=== PATIENT | male | born 1985 ===

== ENCOUNTER 2016-11-30 17:38 | Emergency (ER) | payer BC ==
--- NOTE | 2016-11-30 18:52 | ED CLINICAL REPORT ---
Clinical Report - Physicians/Mid Levels [facility] [address] [place] [address] 11/30/2016 17:42 Patient: EMERSON SNYDER Arrived- By private vehicle. Historian- patient. HISTORY OF PRESENT ILLNESS Chief Complaint: SKIN RASH. This started Past several weeks and is still present and worsening. It was abrupt in onset and has been constant but is not gone now. It is described as itchy, painful and burning. It has been located on the right upper extremity and left upper extremity. No cause has been identified. (patient ports she's been seen at a clinic. Patient states that he was given steroid cream which has not helped. Patient reports no known sick contacts. The patient is unsure if it worsens or improves with warm showers. Patient ports that he also does not know if the itching is worse at night.). Similar symptoms previously: None. Recent medical care: The patient was seen recently in a clinic. REVIEW OF SYSTEMS No fever, difficulty breathing, abdominal pain, nausea or vomiting. All systems otherwise negative, except as recorded above. PAST HISTORY See nurses notes. Tetanus immunization status is up-to-date. SOCIAL HISTORY Never smoker. No alcohol use or drug use. No recent travel. Is a local resident. FAMILY HISTORY Negative. ADDITIONAL NOTES The nursing notes have been reviewed. PHYSICAL EXAM Vital Signs: 11/30/2016 17:54 BP: 114/71. HR: 73. RR: 20. O2 saturation: 99%. Temp: 98.8 F. Blood pressure normal. Oxygen saturation normal. Appearance: Alert. Oriented X3. No acute distress. Eyes: Pupils equal, round and reactive to light. Conjunctivae and eyelids normal. ENT: Ears normal. Nose normal. Pharynx normal. Neck: Neck supple. CVS: Normal heart rate and rhythm. Heart sounds normal. Respiratory: No respiratory distress. Breath sounds normal. Chest nontender. Abdomen: Nontender. No organomegaly. Skin: (Diffuse papular type rash involving the hands bilaterallyfrom the wrist down. Does not involve the palms or the soles. no erythema. No streaking Apparent. Nontender. Compartments are soft. Neurovascularly intact distally. No crepitus. No hyperemia.). PROGRESS AND PROCEDURES Course of Care: The patient is a pleasant 31-year-old male presenting for a violation of rash to the hands. There appeared to be scabies like rash on examination. Patient is also been given triamcinolone cream. If this was due toto a contact type dermatitis or allergic reaction, would expect the cream to have significantly helped. Patient ports that it is worsening. The patient's rash is also consistent with scabies. Patient be treated asscabies at this time. Patient will be instructed to follow-up with his primary care doctor in regards to the symptoms. No other concerning involvement of therash. He does not have any involvement of the eyes, mucous membranes, or palms/soles. Patient ports no fever. No other systemic sinus symptoms. Patient will be provided medications also for symptom control. No signs of infection. Patient is nontoxic and in no acute distress. Vital signs are unremarkable. Do not feel patient needs to be admitted to the hospital require further emergency department workup/evaluation. Disposition: Discharged. Condition: good. CLINICAL IMPRESSION 11/30/2016 17:54 BP: 114/71. HR: 73. RR: 20. O2 saturation: 99%. Temp: 98.8 F. Blood pressure normal. Oxygen saturation normal. Scabies (acute). INSTRUCTIONS Warnings: GENERAL WARNINGS: Return or contact your physician immediately if your condition worsens or changes unexpectedly, if not improving as expected, or if other problems arise. Specifically return if pain, vomiting, bleeding, breathing difficulty or fever. Your Current Medications: CONTINUE TAKING THE FOLLOWING MEDICATIONS: None*. Prescription Medications: Permethrin 5% Cream: Shower and dry thoroughly, then apply cream to whole body from neck down, leave on 8 hours then shower thoroughly and launder clothes and bedclothes in hot water. Repeat in 1 week. Dispense two (2) tubes. One refill. Hydroxyzine 50 mg: take 1 orally every 8 hours as needed for itching. Dispense thirty (30). No refill. Follow-up: Return to the emergency department as needed. Follow up with your doctor in three days. Reason for referral: recheck today's concerns. Summary of care provided to patient via paper. Screening today revealed the patient's blood pressure to be in the normal range. The patient should follow up with a primary care provider for blood pressure management. Understanding of the discharge instructions verbalized by patient. (Electronically signed by Richard Chaudhry Dr. 12/06/2016 9:32)
--- NOTE | 2016-11-30 18:52 | ED NURSING NOTES ---
Clinical Report - Nurses [facility] [place] [address] 11/30/2016 17:42 Patient: EMERSON SNYDER TRIAGE Triage time 17:55. Acuity: LEVEL 3. Chief Complaint: SKIN RASH. Alert. No acute distress. --17:57 Efraín Rene R.N. 17:54 11/30/16. BP: 114/71. HR: 73. RR: 20. O2 saturation: 99%. Temp: 98.8 F. Pain level now 04/27. --17:57 Efraín Rene R.N. Weight: 84.8 kg stated. Height/Length: 69 inches Per Patient. BMI: 27.6. --17:57 Efrían Rene R.N. Medications None. --17:56 Efraín Rene R.N. Allergies None. --17:56 Efraín Rene R.N. History Arrived by private vehicle. Historian: patient. Onset. (1 weeks ago). It is described as itchy, burning and painful. ( Seen at clinic one week ago and started on triamcinolone. Thinks that the bumps / rash are worse.). --17:57 Efraín Rene R.N. Interventions ID band on patient. --17:57 Efraín Rene R.N. PHYSICAL ASSESSMENT GENERAL / NEURO / PSYCH: Alert. The patient does not appear to be in acute distress. Oriented X 4. RESPIRATORY: Respirations not labored. --17:57 Efraín Rene R.N. ( has bumps on both hands. Appear fluid filled. The bumps do not go up his arms past his wrist and are not spreading to any other part of his body. Does not know of any exposure that would be causing this.). --18:01 Efraín Rene R.N. NURSING PROGRESS NOTES Call light placed in reach. Bed placed in lowest position. --17:58 Efraín Rene R.N. DISPOSITION / DISCHARGE Condition at departure: unchanged. No learning barriers present. Discharge instructions provided and reviewed with the patient. Patient verbalized understanding. Written instructions provided in Maldivian. --19:01 Efraín Rene R.N. 19:26 11/30/16. BP: 114/71. HR: 73. RR: 20. O2 saturation: 99%. Temp: 98.8 F. Pain level now 7/10. --19:27 Efraín Rene R.N. Locked/Released at 11/30/2016 19:27 by Efraín Rene R.N.
--- NOTE | 2016-11-30 18:52 | ED NURSING NOTES ---
Clinical Report - Nurses [facility] [place] [address] [place] [address] 11/30/2016 17:42 Patient: EMERSON SNYDER TRIAGE Triage time 17:55. Acuity: LEVEL 3. Chief Complaint: SKIN RASH. Alert. No acute distress. --17:57 Efraín Rene R.N. 17:54 11/30/16. BP: 114/71. HR: 73. RR: 20. O2 saturation: 99%. Temp: 98.8 F. Pain level now 04/27. --17:57 Efraín Rene R.N. Weight: 84.8 kg stated. Height/Length: 69 inches Per Patient. BMI: 27.6. --17:57 Efraín Rene R.N. Medications None. --17:56 Efraín Rene R.N. Allergies None. --17:56 Efraín Rene R.N. History Arrived by private vehicle. Historian: patient. Onset. (1 weeks ago). It is described as itchy, burning and painful. ( Seen at clinic one week ago and started on triamcinolone. Thinks that the bumps / rash are worse.). --17:57 Efraín Rene R.N. Interventions ID band on patient. --17:57 Efraín Rene R.N. PHYSICAL ASSESSMENT GENERAL / NEURO / PSYCH: Alert. The patient does not appear to be in acute distress. Oriented X 4. RESPIRATORY: Respirations not labored. --17:57 Efraín Rene R.N. ( has bumps on both hands. Appear fluid filled. The bumps do not go up his arms past his wrist and are not spreading to any other part of his body. Does not know of any exposure that would be causing this.). --18:01 Efraín Rene R.N. NURSING PROGRESS NOTES Call light placed in reach. Bed placed in lowest position. --17:58 Efraín Rene R.N. DISPOSITION / DISCHARGE Condition at departure: unchanged. No learning barriers present. Discharge instructions provided and reviewed with the patient. Patient verbalized understanding. Written instructions provided in Belarusian. --19:01 Efraín Rene R.N. 19:26 11/30/16. BP: 114/71. HR: 73. RR: 20. O2 saturation: 99%. Temp: 98.8 F. Pain level now 7/10. --19:27 Efraín Rene R.N. Locked/Released at 11/30/2016 19:27 by Efraín Rene R.N.
--- NOTE | 2016-12-06 09:33 | ED DISCHARGE INSTRUCTIONS ---
Patient: EMERSON SNYDER General Instructions [facility] VisitID: [id number] [address] [place] [address] 31y, M Registration Date/Time: 11/30/2016 11/30/2016 17:54 BP: 114/71. HR: 73. RR: 20. O2 saturation: 99%. Temp: 98.8 F. Blood pressure normal. Oxygen saturation normal. Scabies (acute). INSTRUCTIONS Warnings: GENERAL WARNINGS: Return or contact your physician immediately if your condition worsens or changes unexpectedly, if not improving as expected, or if other problems arise. Specifically return if pain, vomiting, bleeding, breathing difficulty or fever. Your Current Medications: CONTINUE TAKING THE FOLLOWING MEDICATIONS: None*. Prescription Medications: Permethrin 5% Cream: Shower and dry thoroughly, then apply cream to whole body from neck down, leave on 8 hours then shower thoroughly and launder clothes and bedclothes in hot water. Repeat in 1 week. Dispense two (2) tubes. One refill. Hydroxyzine 50 mg: take 1 orally every 8 hours as needed for itching. Dispense thirty (30). No refill. Follow-up: Return to the emergency department as needed. Follow up with your doctor in three days. Reason for referral: recheck today's concerns. Summary of care provided to patient via paper. Screening today revealed the patient's blood pressure to be in the normal range. The patient should follow up with a primary care provider for blood pressure management. Understanding of the discharge instructions verbalized by patient. ADDITIONAL INFORMATION Scabies Scabies is a skin disease caused by a tiny insect that can only be seen with a microscope. Scabies alicia under the skin and cause an itchy bumpy rash on the hands, feet, armpits, buttocks and groin area. Preventing Spread To Others: Scabies is highly contagious. It is easily spread by close personal contact or by sharing bed linens or clothing used by an infected person. It may take 4-6 weeks for symptoms to appear after being exposed. Everyone living in the house with an infected person, as well as sexual partners of an infected person, should be treated at the same time. After the first treatment, you will no longer be contagious and you may return to work, school or daycare. Home Care: Clothing Care Machine wash in hot water all sheets, towels, pillowcases, underwear, pajamas and any other clothing recently worn. Use the hot cycle of a dryer or use a hot iron to sterilize. Items that are difficult to wash such as coats, jackets, blankets and spreads can be sealed in a plastic trash bag for four days. (The insects after three days off the human body.) Using Medicine Use the medicine (Kwell or Elimite) exactly as prescribed. Apply it at bedtime from the chin down to your toes, covering all of your skin. Do this even in areas that don't seem infected! Avoid getting the medicine in your eyes and the sensitive areas around the vagina and tip of the penis. If it gets in a sensitive area, rinse with lots of water. Wash off the medicine 8-14 hours later. Do not leave it on the skin longer than directed and do not use it more often than directed. Otherwise, side effects may occur. A single treatment will kill the mites in the skin right away, but it may take 2-4 weeks for all of the itching and rash to go away. Itching may increase slightly right after the treatment, but you should be better by the end of the first week. Women should tell their doctor if they are nursing or think they may be before using this medicine. Itching Oral Benadryl (diphenhydramine) is an antihistamine available at drug and grocery stores. Unless a prescription antihistamine was given, Benadryl may be used to reduce itching if large areas of the skin are involved. Use lower doses during the daytime and higher doses at bedtime since the drug may make you sleepy. [NOTE: Do not use Benadryl if you have glaucoma or if you are a man with trouble urinating due to an enlarged prostate.] Claritin (loratidine) is an antihistamine that causes less drowsiness and is a good alternative for daytime use. For severe itch attacks, apply an ice pack (ice cubes in a plastic bag, wrapped in a towel) or use Lanacaine, Lanacort or Solarcaine (or other medicines containing benzocaine, sold without a prescription). Follow Up with your doctor or as directed if your symptoms do not improve after 1 week. Get Prompt Medical Attention if any of the following occur: Increasing redness of the skin Yellow-brown crusts or drainage from the sores Fever of 100.4F (38C) or higher, or as directed by your healthcare provider Permethrin Topical cream What is this medicine? PERMETHRIN (per METH rin) skin cream is used to treat scabies. How should I use this medicine? This medicine is for external use only. Do not take by mouth. Follow the directions on the prescription label. A bath or shower is NOT recommended before applying this medicine. Thoroughly rub the cream into all skin surfaces, from your head to the soles of your feet. It is important to apply it everywhere on your body, not just where the rash is. Apply the cream between fingers and toe creases, in the folds of the wrist and waistline, in the cleft of the buttocks, on the genitals, and in the belly button. Use a toothpick to apply the cream beneath your fingernails and toenails. Nails should be cut short. If you have little or no hair, or you are applying the cream to an infant or young child, make sure you rub the cream into the neck, scalp, hairline, temples, and forehead. Leave it on for 8 to 14 hours, then remove it by bathing and shampooing. If you are applying this medicine to another person, wear plastic or disposable gloves to protect yourself from infestation. Do not get this medicine in your eyes. If you do, rinse out with plenty of cool tap water. Talk to your cone machine feeder regarding the use of this medicine in children. While this drug may be prescribed for children as young as 2 months of age for selected conditions, precautions do apply. What side effects may I notice from receiving this medicine? Side effects that usually do not require medical attention (report to your doctor or health palliative care physician if they continue or are bothersome): itching numbness rash redness or mild swelling of the skin stinging or burning tingling sensation What may interact with this medicine? Interactions are not expected. Do not use any other skin products on the affected area without telling your doctor or health palliative care physician. What if I miss a dose? This does not apply. Where should I keep my medicine? Keep out of the reach of children. Store at room temperature away from heat and direct light. Do not refrigerate or freeze. Throw away any unused medicine after the expiration date. What should I tell my health care provider before I take this medicine? They need to know if you have any of these conditions: asthma an unusual or allergic reaction to permethrin, veterinary or household insecticides, other medicines, chrysanthemums, foods, dyes, or preservatives or trying to get breast-feeding What should I watch for while using this medicine? It is not unusual for itching and rash to continue for as long as 2 to 4 weeks after treatment. These symptoms may be a temporary reaction to the remains of the mites. This does not mean this cream did not work or that it needs to be reapplied. If you feel that the itching and rash is intense or if it continues beyond 4 weeks, talk to your doctor or health palliative care physician right away. Scabies is spread by direct skin contact with an infected person. Family members and sexual partners may require treatment with this medicine. You should discuss this with your doctor or health palliative care physician. Using a normal washing cycle, you should wash all clothing, towels and bed linen that has touched your skin. You do not need to rewash clean clothing that has not yet been worn. [place], furniture, rugs, floors, and town[place] do not need to be cleaned in any special manner. Hydroxyzine Pamoate Oral capsule What is this medicine? HYDROXYZINE (leonor DROX i zeen) is an antihistamine. This medicine is used to treat allergy symptoms. It is also used to treat anxiety and tension. This medicine can be used with other medicines to induce sleep before surgery. How should I use this medicine? Take this medicine by mouth with a full glass of water. Follow the directions on the prescription label. You may take this medicine with food or on an empty stomach. Take your medicine at regular intervals. Do not take your medicine more often than directed. Talk to your cone machine feeder regarding the use of this medicine in children. Special care may be needed. While this drug may be prescribed for children as young as 6 years of age for selected conditions, precautions do apply. Patients over 65 years old may have a stronger reaction and need a smaller dose. What side effects may I notice from receiving this medicine? Side effects that you should report to your doctor or health palliative care physician as soon as possible: fast or irregular heartbeat difficulty passing urine seizures slurred speech or confusion tremor Side effects that usually do not require medical attention (report to your doctor or health palliative care physician if they continue or are bothersome): constipation drowsiness fatigue headache stomach upset What may interact with this medicine? alcohol barbiturate medicines for sleep or seizures medicines for colds, allergies medicines for depression, anxiety, or emotional disturbances medicines for pain medicines for sleep muscle relaxants What if I miss a dose? If you miss a dose, take it as soon as you can. If it is almost time for your next dose, take only that dose. Do not take double or extra doses. Where should I keep my medicine? Keep out of the reach of children. Store at room temperature between 15 and 30 degrees C (59 and 86 degrees F). Keep container tightly closed. Throw away any unused medicine after the expiration date. What should I tell my health care provider before I take this medicine? They need to know if you have any of these conditions: any chronic illness difficulty passing urine glaucoma heart disease kidney disease liver disease lung disease an unusual or allergic reaction to hydroxyzine, cetirizine, other medicines, foods, dyes, or preservatives or trying to get breast-feeding What should I watch for while using this medicine? Tell your doctor or health palliative care physician if your symptoms do not improve. You may get drowsy or dizzy. Do not drive, use machinery, or do anything that needs mental alertness until you know how this medicine affects you. Do not stand or sit up quickly, especially if you are an older patient. This reduces the risk of dizzy or fainting spells. Alcohol may interfere with the effect of this medicine. Avoid alcoholic drinks. Your mouth may get dry. Chewing sugarless gum or sucking hard candy, and drinking plenty of water may help. Contact your doctor if the problem does not go away or is severe. This medicine may cause dry eyes and blurred vision. If you wear contact lenses you may feel some discomfort. Lubricating drops may help. See your eye doctor if the problem does not go away or is severe. If you are receiving skin tests for allergies, tell your doctor you are using this medicine. You have been given the following additional information: Scabies Permethrin Topical cream Hydroxyzine Pamoate Oral capsule (Electronically signed by Richard Chaudhry Dr. 12/06/2016 9:32)
--- NOTE | 2016-12-06 09:33 | ED MAR SUMMARY ---
..... Medication Administration Record [facility] [address] [place], [place] [id number] Patient: EMERSON SNYDER Visit ID: [id number] 31y, M Weight: 84.8 kg Height/Length: 69 in BMI: 27.6 ALLERGIES: None
--- NOTE | 2016-12-06 09:33 | ED MAR SUMMARY ---
..... Medication Administration Record [facility] [address] [place], [place] [id number] Patient: EMERSON SNYDER Visit ID: [id number] 31y, M Weight: 84.8 kg Height/Length: 69 in BMI: 27.6 ALLERGIES: None
--- NOTE | 2016-12-06 09:33 | ED MED RECONCILIATION SUMMARY ---
Patient: EMERSON SNYDER Medication Reconciliation Report [facility] VisitID: [id number] [address] [place] [address] 31y, M Registration Date/Time: 11/30/2016 Weight: 84.8 kg Height/Length: 69 in. BMI: 27.6 ALLERGIES: None The patient's Home Medications are listed below: NONE. The source(s) of the original Home Medication information: Not obtained. The following Medications were given to the patient in the Emergency Department: None. The following Medications were prescribed to the patient: Permethrin 5% Cream: Shower and dry thoroughly, then apply cream to whole body from neck down, leave on 8 hours then shower thoroughly and launder clothes and bedclothes in hot water. Repeat in 1 week. Dispense two (2) tubes. One refill. -- Richard Chaudhry Dr. Hydroxyzine 50 mg: take 1 orally every 8 hours as needed for itching. Dispense thirty (30). No refill. -- Richard Chaudhry Dr.
--- NOTE | 2016-12-06 09:33 | ED MED RECONCILIATION SUMMARY ---
Patient: EMERSON SNYDER Medication Reconciliation Report [facility] VisitID: [id number] [address] [place] [address] 31y, M Registration Date/Time: 11/30/2016 Weight: 84.8 kg Height/Length: 69 in. BMI: 27.6 ALLERGIES: None The patient's Home Medications are listed below: NONE. The source(s) of the original Home Medication information: Not obtained. The following Medications were given to the patient in the Emergency Department: None. The following Medications were prescribed to the patient: Permethrin 5% Cream: Shower and dry thoroughly, then apply cream to whole body from neck down, leave on 8 hours then shower thoroughly and launder clothes and bedclothes in hot water. Repeat in 1 week. Dispense two (2) tubes. One refill. -- Richard Chaudhry Dr. Hydroxyzine 50 mg: take 1 orally every 8 hours as needed for itching. Dispense thirty (30). No refill. -- Richard Chaudhry Dr.
== END 2016-11-30 19:00 | disposition home or self-care (01) ==
LOC: ED SRH 17:38
DX: B86 Scabies (principal)